=== PATIENT | female | born 1970 | race Caucasian/White ===

== ENCOUNTER 2016-10-03 05:04 | Emergency (ER) | payer OTHER ==
[~2016-10-03] VITALS: Ht 162.5 cm; Wt 104.3 kg
[~2016-10-03 05:04] MED LIST: ADDERALL20 MG PO; KEFLEX500 MG PO; NAPROSYN500 MG PO; NORCO 5-325 TA1 EACH PO; OMEPRAZOLE20 MG PO; VITAMIN D1000 IU PO; ZOFRAN4 MG PO
[2016-10-03 05:37] LABS: BILIRUBIN NEGATIVE (NEGATIVE); BLOOD TRACE-LYSED (NEGATIVE); CLARITY CLOUDY (CLEAR); COLOR YELLOW (YELLOW); GLUCOSE NEGATIVE (NEGATIVE); KETONE NEGATIVE (NEGATIVE); LEUKO ESTERASE 3+ (NEGATIVE); NITRITE NEGATIVE (NEGATIVE); PROTEIN NEGATIVE (NEGATIVE); SPECIFIC GRAVITY 1.015 (1.005-1.030); UROBILINOGEN 0.2 E.U./dl (0.2-1.0)
[2016-10-03 05:46] LABS: EPITHELIAL CELLS TNTC; RBC 31-40 rbc/hpf (0-2); WBC 31-40 wbc/hpf (0-5)
[2016-10-03 05:47] LABS: BACTERIA 4+; URINE REFLEX COMMENT YES (NO)
[2016-10-03 05:48] LABS: BASO # 0.1 10*3/uL (0.0-0.1); BASO % 0.5 % (0.0-1.0); EOS # 0.3 10*3/uL (0.0-0.4); EOS % 2.4 % (1.0-4.0); HEMOGLOBIN 11.9 g/dl (12.0-16.0); IG # 0.1 10*3/uL (0.0-0.1); LYMPH # 2.3 10*3/uL (1.3-4.4); LYMPH % 21.1 % (27.0-41.0); MEAN CELL VOLUME 84.9 fl (81.0-99.0); MEAN CORPUSCULAR HGB 28.1 pg (27.0-31.0); MEAN CORPUSCULAR HGB CONC 33.1 g/dl (33.0-37.0); MEAN PLATELET VOLUME 11.8 fl (9.6-12.3); MONO % 9.3 % (3.0-9.0); NEUT # 7.2 10*3/uL (2.3-7.9); NEUT % 65.9 % (47.0-73.0); PLATELET COUNT AUTOMATED 155 10*3/uL (130-400); RED BLOOD COUNT 4.24 10*6/uL (4.10-5.10); RED CELL DISTRI WIDTH 14.6 % (0-14.5); WHITE BLOOD COUNT 10.9 10*3/uL (4.8-10.8)
[2016-10-03 06:01] LABS: ALBUMIN 3.4 gm/dl (3.1-4.5); ALKALINE PHOSPHATASE 53 U/L (45-117); BILIRUBIN, TOTAL 0.4 mg/dl (0.2-1.0); BUN 13 mg/dl (7-24); CARBON DIOXIDE 28 mmol/L (21-32); CHLORIDE 106 mmol/L (98-107); EST GLOM FILT AFRICAN AMERICAN > 60 ml/min; GLUCOSE 154 mg/dL (65-99); POTASSIUM 3.8 mmol/L (3.5-5.1); SGOT/AST 12 IU/L (3-35); SGPT/ALT 27 U/L (12-78); SODIUM 140 mmol/L (136-145); TOTAL PROTEIN 6.9 gm/dL (6.4-8.2)
[2016-10-03 06:03] LABS: TROPONIN I < 0.015 ng/ml (<0.045)
[2016-10-03] MEDS ORDERED: Motrin,Rufen800 MG PO (07:30)
[2016-10-03] MEDS ORDERED: LEVOFLOXACIN500 MG PO (07:30)
== END 2016-10-03 07:47 | disposition home or self-care (01) ==
LOC: ED 05:04
PROVIDERS: Emergency Medicine Emergency Medical Services
DX: N39.0 Urinary tract infection, site not specified (principal); R31.9 Hematuria, unspecified

== ENCOUNTER 2018-06-06 18:50 | Emergency (ER) | payer SELFPAY ==
[~2018-06-06] VITALS: Ht 162.5 cm; Wt 104.3 kg
[~2018-06-06 18:50] MED LIST changes: +LEVOFLOXACIN500 MG PO; +Motrin,Rufen800 MG PO
[2018-06-07] MEDS ORDERED: TAMIFLU 75MG CA75 MG PO (09:41)
== END 2018-06-06 19:50 | disposition home or self-care (01) ==
LOC: ED 18:50
DX: J10.1 Influenza due to other identified influenza virus with other respiratory manifestations (principal)